=== PATIENT | female | born 1975 | race Caucasian/White ===

== ENCOUNTER 2018-04-07 12:47 | Emergency (ER) | payer OTHER ==
[~2018-04-07] VITALS: Ht 162.6 cm; Wt 104.3 kg
[2018-04-07] MEDS ORDERED: WELLBUTRIN XL150 MG PO (13:00)
[2018-04-07] MEDS ORDERED: PROTONIX40 M1 PO (13:00)
[2018-04-07] MEDS ORDERED: NEURONTIN600 MG PO (13:00)
[2018-04-07] MEDS ORDERED: CYMBALTA20 MG PO (13:01)
[2018-04-07] MEDS ORDERED: ROBAXIN 750 MG750 M1 PO (13:01)
[2018-04-07] MEDS ORDERED: ALL DAY ALLERGY10 M3 PO (13:03)
[2018-04-07] MEDS ORDERED: PROBIOTIC1 EAC1 PO (13:03)
[2018-04-07] MEDS ORDERED: VITAMIN D1000 UNI1 PO (13:03)
[2018-04-07] MEDS ORDERED: ACCUNEB SO1.25 MG/1 INH (13:04)
[2018-04-07] MEDS ORDERED: ASMANEX220 MC1 INH (13:04)
[2018-04-07 13:42] LABS: ABSOLUTE EOSINOPHILS 0.2 thou/uL (0.0-0.7); EOSINOPHILS 1.7 %
[2018-04-07 13:43] LABS: ABSOLUTE BASOPHILS 0.1 thou/uL (0.0-0.2); ABSOLUTE NEUTROPHILS 9.4 thou/uL (1.6-8.1); BASOPHILS 0.9 %; HEMATOCRIT 39.7 % (37.0-47.0); HEMOGLOBIN 13.3 gm/dL (12.0-15.0); MCHC 33.4 g/dL (28.0-37.0); MONOCYTES 7.9 %; MPV 7.9 fl. (7.2-11.1); NUCLEATED RBCS 0 /100WBC; PLATELET COUNT* 294 thou/uL (150-400); POLYS 73.5 %; RBC 4.56 mil/uL (4.20-5.00); RDW-CV 13.5 % (10.5-14.5); WBC 12.8 thou/uL (4.0-11.0)
[2018-04-07 14:00] LABS: CALCIUM 9.2 mg/dL (8.5-10.1); CREATININE 0.7 mg/dL (0.6-1.3); POTASSIUM 3.4 mmol/L (3.5-5.1)
[2018-04-07] MEDS ORDERED: PREDNISONE 20 M20 M1 PO (14:06)
[2018-04-07] MEDS ORDERED: BACTRIM DS TAB1 EACH PO (14:06)
[2018-04-07 14:16] LABS: ALBUMIN 3.2 g/dL (3.4-5.0); TOTAL BILIRUBIN 0.4 mg/dL (<0.1-1.0); TOTAL PROTEIN 7.7 g/dL (6.4-8.2)
[2018-04-07 14:45] VITALS: BP 109/74
== END 2018-04-07 14:47 | disposition home or self-care (01) ==
LOC: M.ERS 12:47
PROVIDERS: Family Medicine
DX: R21 Rash and other nonspecific skin eruption (principal); R53.1 Weakness; G43.909 Migraine, unspecified, not intractable, without status migrainosus; M79.7 Fibromyalgia; M06.9 Rheumatoid arthritis, unspecified; N80.9 Endometriosis, unspecified; Z88.1 Allergy status to other antibiotic agents; Z88.5 Allergy status to narcotic agent